=== PATIENT | female | born 1985 | race Caucasian/White ===

== ENCOUNTER 2016-03-20 23:28 | Emergency (ER) | payer OTHER ==
[~2016-03-20] VITALS: Ht 176.5 cm; Wt 109.0 kg
[~2016-03-20 23:28] MED LIST: CLIN1CAP5 PO; GABA300C5 PO; IBUP-232 PO; TEGR200T PO
[2016-03-21 00:04] VITALS: BP 131/75; PULSE 87; RESP 17; TEMP 97.9; O2SAT 98
[2016-03-21] MEDS ORDERED: XANA2TAB2 PO (00:06)
[2016-03-21] MEDS ORDERED: TETANUS/DIPHTHERIA TOXOID ADULT 0.5 ML VIAL IM ONE (00:30)
--- NOTE | 2016-03-21 00:52 | PD ---
HPI Chief Complaint: Psychiatric Symptoms Time Seen by Provider: 00:44 Travel History International Travel<30 days: No Contact w/Intl Traveler<30days: No Traveled to known affect area: No History of Present Illness HPI 30-year-old white female presents to emergency department under [place] act by PD. The patient had called PD notifying them that she was tired of living. The patient had made suicide gesture cutting to her left wrist. 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 She states that she is not truly suicidal. She is merely upset. She has lost the custody of her children. She is unhappy with her current lifestyle. She states that she suffers from PTSD and smokes marijuana because calms her down. She states that she's had a history of substance abuse in the past and has been sober now for many years except for her marijuana. The patient does admit to alcohol, and tobacco. She denies any toxic ingestions. She denies any recent illness. Denies . Denies any homicidal ideation. She states that she does not want sutures. PFSH Past Medical History Narrative Medical Borderline personality disorder, Bipolar, anxiety, PTSD Bipolar Disorder: Yes Anxiety: Yes Depression: Yes Cancer: No Diminished Hearing: No Psychiatric: Yes (Borderline personality DO, PTSD) Seizures: No Thyroid Disease: No Ulcer: No Tetanus Vaccination: Unknown Influenza Vaccination: No ?: Not LMP: 03/21/16 : 8 Para: 5 Miscarriage: 3 : 0 Ovarian Cysts: No Tubal Ligation: Yes Past Surgical History Narrative Surgical Tubal ligation Social History Alcohol Use: Yes (Occ.) Tobacco Use: Yes (1 PPD) Substance Use: Yes (MARIJUANA) Allergies-Medications (Allergen,Severity, Reaction): Uncoded Allergies: BROCCOLI (Adverse Reaction, Intermediate, CAUSES VOMITING., 08/07/15) CAULIFLOWER (Adverse Reaction, Intermediate, PT DENIES, 08/07/15) Reported Meds & Prescriptions Reported Meds & Active Scripts Active Reported Xanax (Alprazolam) 2 Mg Tab 2 Mg PO Q8H PRN Review of Systems Except as stated in HPI: all other systems reviewed are Neg Physical Exam Narrative GENERAL: Well-nourished, well-developed patient. SKIN: Warm and dry. Patient has 2 superficial abrasion lacerations to the left forearm with a deeper third laceration to the left volar forearm. This laceration goes just into subcutaneous tissues. This is amenable to Steri- Strips. No deep injury. The laceration measures approximately 9 cm HEAD: Normocephalic and atraumatic. EYES: No scleral icterus. No injection or drainage. ENT: No nasal drainage noted. Mucous membranes pink. Airway patent. NECK: Supple, trachea midline. Moves head freely without obvious discomfort. CARDIOVASCULAR: Regular rate and rhythm without murmurs, gallops, or rubs. RESPIRATORY: Breath sounds equal bilaterally. No accessory muscle use. GASTROINTESTINAL: Abdomen soft, non-tender, nondistended. EXTREMITIES: No cyanosis or edema. BACK: Nontender without obvious deformity. No CVA tenderness. NEURO: Patient is alert and oriented. no sensorimotor deficits. Nonfocal. Normal speech. PSYCH: No delusions. No auditory or visual hallucinations. Data Data Last Documented VS Vital Signs Date Time Temp Pulse Resp B/P Pulse Ox O2 Delivery O2 Flow Rate FiO2 03/21/16 00:14 87 17 03/21/16 00:04 97.9 131/75 98 Orders Tetanus/Diphtheria Tox Adult (Tetanus/Di (03/21/16 00:30) Complete Blood Count With Diff (03/21/16 00:18) Comprehensive Metabolic Panel (03/21/16 00:18) Drug Screen, Random Urine (03/21/16 00:18) Ed Urine Pregnancytest Poc (03/21/16 00:18) Alcohol (Ethanol) (03/21/16 00:18) Salicylates (Aspirin) (03/21/16 00:18) Tylenol (Acetaminophen) (03/21/16 00:18) Psych Screen (03/21/16 00:18) Potassium Chloride (Kcl) (03/21/16 02:30) Labs Laboratory Tests Test 03/21/16 03/21/16 00:30 00:50 Urine Opiates Screen NEG Urine Barbiturates Screen NEG Urine Amphetamines Screen POS Urine Benzodiazepines Screen POS Urine Cocaine Screen POS Urine Cannabinoids Screen POS White Blood Count 8.2 TH/MM3 Red Blood Count 5.02 MIL/MM3 Hemoglobin 12.5 GM/DL Hematocrit 38.4 % Mean Corpuscular Volume 76.5 FL Mean Corpuscular Hemoglobin 24.8 PG Mean Corpuscular Hemoglobin 32.5 % Concent Red Cell Distribution Width 16.1 % Platelet Count 309 TH/MM3 Mean Platelet Volume 8.2 FL Neutrophils (%) (Auto) 59.3 % Lymphocytes (%) (Auto) 32.9 % Monocytes (%) (Auto) 6.4 % Eosinophils (%) (Auto) 0.9 % Basophils (%) (Auto) 0.5 % Neutrophils # (Auto) 4.9 TH/MM3 Lymphocytes # (Auto) 2.7 TH/MM3 Monocytes # (Auto) 0.5 TH/MM3 Eosinophils # (Auto) 0.1 TH/MM3 Basophils # (Auto) 0.0 TH/MM3 CBC Comment AUTO DIFF Differential Comment AUTO DIFF CONFIRMED Ovalocytes 1+ Sodium Level 139 MEQ/L Potassium Level 3.1 MEQ/L Chloride Level 105 MEQ/L Carbon Dioxide Level 23.2 MEQ/L Anion Gap 11 MEQ/L Blood Urea Nitrogen 12 MG/DL Creatinine 1.03 MG/DL Estimat Glomerular Filtration 63 ML/MIN Rate Random Glucose 79 MG/DL Calcium Level 8.9 MG/DL Total Bilirubin 0.4 MG/DL Aspartate Amino Transf 15 U/L (AST/SGOT) Alanine Aminotransferase 20 U/L (ALT/SGPT) Alkaline Phosphatase 65 U/L Total Protein 7.7 GM/DL Albumin 4.3 GM/DL Salicylates Level 3.2 MG/DL Acetaminophen Level LESS THAN 2.0 MCG/ML Ethyl Alcohol Level 9 MG/DL MDM Medical Decision Making Medical Screen Exam Complete: Yes Emergency Medical Condition: Yes Medical Record Reviewed: Yes Interpretation(s) Laboratory Tests Test 03/21/16 03/21/16 00:30 00:50 Urine Opiates Screen NEG Urine Barbiturates Screen NEG Urine Amphetamines Screen POS Urine Benzodiazepines Screen POS Urine Cocaine Screen POS Urine Cannabinoids Screen POS White Blood Count 8.2 TH/MM3 Red Blood Count 5.02 MIL/MM3 Hemoglobin 12.5 GM/DL Hematocrit 38.4 % Mean Corpuscular Volume 76.5 FL Mean Corpuscular Hemoglobin 24.8 PG Mean Corpuscular Hemoglobin 32.5 % Concent Red Cell Distribution Width 16.1 % Platelet Count 309 TH/MM3 Mean Platelet Volume 8.2 FL Neutrophils (%) (Auto) 59.3 % Lymphocytes (%) (Auto) 32.9 % Monocytes (%) (Auto) 6.4 % Eosinophils (%) (Auto) 0.9 % Basophils (%) (Auto) 0.5 % Neutrophils # (Auto) 4.9 TH/MM3 Lymphocytes # (Auto) 2.7 TH/MM3 Monocytes # (Auto) 0.5 TH/MM3 Eosinophils # (Auto) 0.1 TH/MM3 Basophils # (Auto) 0.0 TH/MM3 CBC Comment AUTO DIFF Differential Comment AUTO DIFF CONFIRMED Ovalocytes 1+ Sodium Level 139 MEQ/L Potassium Level 3.1 MEQ/L Chloride Level 105 MEQ/L Carbon Dioxide Level 23.2 MEQ/L Anion Gap 11 MEQ/L Blood Urea Nitrogen 12 MG/DL Creatinine 1.03 MG/DL Estimat Glomerular Filtration 63 ML/MIN Rate Random Glucose 79 MG/DL Calcium Level 8.9 MG/DL Total Bilirubin 0.4 MG/DL Aspartate Amino Transf 15 U/L (AST/SGOT) Alanine Aminotransferase 20 U/L (ALT/SGPT) Alkaline Phosphatase 65 U/L Total Protein 7.7 GM/DL Albumin 4.3 GM/DL Salicylates Level 3.2 MG/DL Acetaminophen Level LESS THAN 2.0 MCG/ML Ethyl Alcohol Level 9 MG/DL Differential Diagnosis MDM: High Differential diagnoses: Schizophrenia, schizoaffective disorder, bipolar, anxiety, depression, adjustment reaction, mood disorder NOS, ODD, depressive disorder NOS, dementia, dementia with agitation, psychosis NOS, substance induced mood disorder, intermittent explosive disorder, Asperger syndrome, infection,electrolyte abnormality, malingering. Narrative Course Mental health screening discussed with the patient. Psychiatric screen ordered. The patient is been medically cleared. The patient's wounds are cleansed and Steri-Stripped by the nursing staff. This is bipolar disorder-depressed, cutting, PSA, Hypokalemia Diagnosis Primary Impression: Bipolar disorder current episode depressed Qualified Code: F31.30 - Bipolar affective disorder, current episode depressed , current episode severity unspecified Additional Impressions: cutting Polysubstance abuse Hypokalemia Condition: Stable Brant Kirkpatrick Mar 21, 2016 00:52
[2016-03-21 01:00] LABS: AUTOMATED NEUTROPHIL # 4.9 TH/MM3 (1.8-7.7); BASOPHIL % 0.5 % (0.0-2.0); EOSINOPHIL # 0.1 TH/MM3 (0-0.4); EOSINOPHIL % 0.9 % (0.0-4.0); HEMATOCRIT 38.4 % (35.0-46.0); LYMPH % 32.9 % (9.0-44.0); LYMPHOCYTE # 2.7 TH/MM3 (1.0-4.8); MEAN CELL VOLUME 76.5 FL (80.0-100.0); MEAN CORPUSCULAR HEMOGLOBIN 24.8 PG (27.0-34.0); MEAN CORPUSCULAR HGB CONC 32.5 % (32.0-36.0); MONO % 6.4 % (0.0-8.0); NEUT % 59.3 % (16.0-70.0); PLATELET COUNT 309 TH/MM3 (150-450); RED BLOOD COUNT 5.02 MIL/MM3 (4.00-5.30); RED CELL DISTRIBUTION WIDTH 16.1 % (11.6-17.2); WHITE BLOOD COUNT 8.2 TH/MM3 (4.0-11.0)
[2016-03-21 01:05] LABS: HEMO FLAGS AUTO DIFF
[2016-03-21 01:12] LABS: ALKALINE PHOSPHATASE 65 U/L (45-117); TOTAL BILIRUBIN ADULT 0.4 MG/DL (0.2-1.0)
[2016-03-21 01:13] LABS: ALT (GPT) 20 U/L (10-53); ANION GAP 11 MEQ/L (5-15); AST (GOT) 15 U/L (15-37); BICARBONATE 23.2 MEQ/L (21.0-32.0); BLOOD UREA NITROGEN 12 MG/DL (7-18); CHLORIDE 105 MEQ/L (98-107); GLOMERULAR FILTRATION RATE 63 ML/MIN (>89); POTASSIUM 3.1 MEQ/L (3.5-5.1); SODIUM (NA) 139 MEQ/L (136-145)
[2016-03-21 01:14] LABS: ACETAMINOPHEN LESS THAN 2.0 MCG/ML (10.0-30.0)
[2016-03-21 01:18] LABS: AMPHETAMINE, URINE POS (NEG); BARBITURATES, URINE NEG (NEG); COCAINE, URINE POS (NEG)
[2016-03-21 01:32] LABS: SCAN/DIFF AUTO DIFF CONFIRMED
[2016-03-21 01:33] LABS: OVALOCYTES 1+ (NORMAL)
[2016-03-21] MEDS ORDERED: POTASSIUM CHLORIDE 20 MEQ CONTROLLED RELEASE TAB PO ONE (02:30)
[2016-03-21 02:59] VITALS: BP 121/58; PULSE 87; RESP 20; O2SAT 97
[2016-03-21 04:20] VITALS: BP 120/68
== END 2016-03-21 04:30 ==
LOC: NEPA 23:28
DX: F31.9 Bipolar disorder, unspecified (principal); E87.6 Hypokalemia; F17.210 Nicotine dependence, cigarettes, uncomplicated; F43.10 Post-traumatic stress disorder, unspecified
CPT/HCPCS: 80053; 80307; 80320; 80329; 84703; 85025; 99285; G0480

== ENCOUNTER 2016-09-12 16:01 | Emergency (ER) | payer SELFPAY ==
[~2016-09-12] VITALS: Ht 175.3 cm; Wt 87.0 kg
[~2016-09-12 16:01] MED LIST changes: -CLIN1CAP5 PO; -GABA300C5 PO; -IBUP-232 PO; -TEGR200T PO; +XANA2TAB2 PO
[2016-09-12 16:03] VITALS: BP 134/78; PULSE 105; RESP 20; TEMP 99.7; O2SAT 98
== END 2016-09-12 17:34 | disposition left against medical advice (07) ==
LOC: NED 16:01
DX: M54.9 Dorsalgia, unspecified (principal); Z53.21 Procedure and treatment not carried out due to patient leaving prior to being seen by health care provider
CPT/HCPCS: 99281